=== PATIENT | female | born 1955 | race Hispanic/Latino ===

== ENCOUNTER → 2025-02-04 | Outpatient (REF) | payer MEDICARE ==
[~2025-02-04] MED LIST: AMOXICILLIN500 M1 PO; IOPAMIDOL 370 MG/ML 100 ML INFUS..BTL INJ ONE
[2025-02-04 14:51] LABS: EST GLOMERULAR FILTRATION RATE 96.0 ML/MIN (>=60)
== END ==
LOC: CT 14:03
PROVIDERS: ATTEND Internal Medicine Cardiovascular Disease
DX: I65.21 Occlusion and stenosis of right carotid artery (principal); I65.22 Occlusion and stenosis of left carotid artery
CPT/HCPCS: 36415; 70498; 82565; 84520; Q9967